=== PATIENT | female | born 1965 | race Two or more races ===

== ENCOUNTER 2023-05-27 19:51 | Emergency (ER) | payer MEDICAID, OTHER ==
[~2023-05-27] VITALS: Ht 162.6 cm; Wt 90.7 kg
[~2023-05-27 19:51] MED LIST: [UNRECOGNIZED DRUG - REMARK] PO
[2023-05-27 20:45] VITALS: BP 203/110; PULSE 98; RESP 20; TEMP 97.4; O2SAT 99
[2023-05-27] MEDS ORDERED: HYDROcodone/APAP 5/325 MG 1 TAB TAB PO ONE (22:55)
[2023-05-27] MEDS ORDERED: KETOROLAC 30 MG/ML VIAL IM ONE (22:55)
[2023-05-27] MEDS ORDERED: BACITRACIN OINT 500 UNITS/GM PKT TP ONE (22:55)
[2023-05-27] MEDS ORDERED: diazePAM 5 MG TAB PO ONE (22:55)
[2023-05-27] MEDS ORDERED: BACI-418 TP (23:00)
[2023-05-27] MEDS ORDERED: ACET-8905 PO (23:00)
[2023-05-27] MEDS ORDERED: CYCL-711 PO (23:00)
[2023-05-27] MEDS ORDERED: NAPR-54 PO (23:00)
[2023-05-27 23:37] VITALS: BP 154/79; PULSE 92; RESP 20; TEMP 98; O2SAT 99
== END 2023-05-27 23:37 | disposition home or self-care (01) ==
LOC: MED 19:51
DX: S00.83XA Contusion of other part of head, initial encounter (principal); I10 Essential (primary) hypertension; Z79.899 Other long term (current) drug therapy; V49.88XA Car occupant (driver) (passenger) injured in other specified transport accidents, initial encounter; Y93.89 Activity, other specified; Y92.89 Other specified places as the place of occurrence of the external cause; Y99.8 Other external cause status
CPT/HCPCS: 70450; 70486; 71045; 72125; 96372; 99285; J1885; Q0092